=== PATIENT | male | born 1980 | race Caucasian/White ===

== ENCOUNTER 2021-11-09 11:26 | Outpatient (CLI) | payer OTHER, SELFPAY ==
[2021-11-09 17:29] LABS: Cholesterol* 212 mg/dL (90-199); HDL Cholesterol* 43 mg/dL (>=40); LDL Cholesterol Calculated 136 mg/dL (<100); Triglycerides* 166 mg/dL (40-149)
[2021-11-09 17:47] LABS: Vitamin D 25 Hydroxy* 37 ng/mL (30-80)
[2021-11-09 18:05] LABS: Ferritin* 54.7 ng/mL (17.9-464.0)
== END 2021-11-09 11:27 | disposition home or self-care (01) ==
PROVIDERS: PCP Family Medicine; Visit Provider Family Medicine
DX: E55.9 Vitamin D deficiency, unspecified (principal); F32.9 Major depressive disorder, single episode, unspecified; N52.9 Male erectile dysfunction, unspecified; Z13.0 Encounter for screening for diseases of the blood and blood-forming organs and certain disorders involving the immune mechanism; Z13.6 Encounter for screening for cardiovascular disorders
CPT/HCPCS: 80061; 82306; 82728

== ENCOUNTER 2023-05-24 20:21 | Emergency (ER) | payer BC, SELFPAY ==
[2023-05-24 20:44] VITALS: BP 119/83; PULSE 113; RESP 18; TEMP 37; O2SAT 98; BMI 22.8
--- NOTE | 2023-05-24 21:11 | ED.GENADULT ---
HPI - General Adult General Chief complaint: Cough Stated complaint: Flu like symptoms; tingly lungs Time Seen by Provider: 05/24/23 20:35 History of Present Illness HPI narrative: cough congestion nasal drainage since 0, states gets pnx easily and wants to get ahead of it. pt states it starting to feel like its getting down into his lungs - tingle feeling. hx panic attacks so pt took ativan at 1930 with tylenol and ibuprofen because his temporal temp was 105 at home . 42-year-old man presenting to the emergency department with concern of potential pneumonia. About 16 hours ago developed relatively rapid onset of cough congestion runny nose and body aches and shakes and fever. Measured temperature up to 105 at home apparently. He is worried it might be getting into his lungs noting a history of pneumonia gesturing across the upper chest. I understand him to say that his doctor has told him that he has upper lung disease. Underlying history of anxiety and has taken an Ativan. Also took ibuprofen and acetaminophen prior to arrival. I note he arrives afebrile now. No vomiting. No diarrhea. No particular exposures. Related Data Home Medications Medication Instructions Recorded Confirmed amitriptyline 100 mg tablet 100 mg PO QDAY 11/09/21 05/24/23 fluticasone propionate 110 1 inhalation PRN 11/09/21 11/09/21 mcg/actuation HFA aerosol inhaler lorazepam 1 mg tablet 1 mg PO QDAY PRN 11/09/21 05/24/23 pregabalin 25 mg capsule (Lyrica) 25 mg PO BID 11/09/21 05/24/23 propranolol 60 mg capsule,24 60 mg PO QDAY 11/09/21 11/09/21 hr,extended release quetiapine 25 mg tablet (Seroquel) 12.5 mg PO QDAY 11/09/21 11/09/21 sumatriptan succinate 100 mg 100 mg PO ONCE PRN 11/09/21 11/09/21 tablet (Imitrex) Previous Rx's Medication Instructions Recorded sildenafil 100 mg tablet 100 mg PO QDAY PRN sexual activity 05/14/22 #7 tabs montelukast 10 mg tablet 10 mg PO QPM #90 tabs 08/13/22 Allergies Allergy/AdvReac Type Severity Reaction Status Date / Time No Known Allergies Allergy Unverified 11/08/21 15:20 Review of Systems Status of ROS: Reports: 6 or more systems reviewed and unremarkable except as noted in History and below [facility] Surgical History Status post tonsillectomy and adenoidectomy ?Z90.89 - Acquired absence of other organs (ICD-10) Family History Other Diabetes Social History Smoking Status: Never smoker Exam Narrative: Exam Narrative: Pleasant. Seems generally little uncomfortable. Breathing easily. Sounds a little congested in the nasopharynx. Oropharynx is moist. Neck is supple without lymphadenopathy. Lungs actually sound clear. No wheeze. Heart is in an elevated rate and regular rhythm. No murmur rub or gallop noted. Abdomen is soft and while he resists a little bit on the exam, abdomen is nontender. Lower extremities without edema. He is well-perfused. Const: Vital Signs, click to edit/add: Vital Signs - 24 hr 05/24/23 20:44 Temperature 98.6 F Pulse Rate [Pulse Oximeter] 113 H Respiratory Rate 18 Blood Pressure [Le ft Upper Arm] 119/83 Pulse Oximetry 98 Oxygen Delivery Me thod Room Air Documenting provider has reviewed patient's vital signs: yes Course Vital Signs Vital signs: Initial Vital Signs Temperature 98.6 F 05/24/23 20:44 Temperature Source Temporal Artery Scan 05/24/23 20:44 Pulse Rate 113 H 05/24/23 20:44 Respiratory Rate 18 05/24/23 20:44 Blood Pressure 119/83 05/24/23 20:44 Blood Pressure Mean 95 05/24/23 20:44 Blood Pressure Position Sitting 05/24/23 20:44 Pulse Oximetry 98 05/24/23 20:44 Oxygen Delivery Method Room Air 05/24/23 20:44 Vital Signs Temperature 98.6 F 05/24/23 20:44 Pulse Rate 113 H 05/24/23 20:44 Respiratory Rate 18 05/24/23 20:44 Blood Pressure 119/83 05/24/23 20:44 Pulse Oximetry 98 05/24/23 20:44 Oxygen Delivery Method Room Air 05/24/23 20:44 Temperature 98.6 F 05/24/23 20:44 Pulse Rate 113 H 05/24/23 20:44 Respiratory Rate 18 05/24/23 20:44 Blood Pressure 119/83 05/24/23 20:44 Pulse Oximetry 98 05/24/23 20:44 Oxygen Delivery Method Room Air 05/24/23 20:44 Medical Decision Making MDM Narrative Medical decision making narrative: With abruptness of onset I doubt pneumonia. Considering community prevalence suspect influenza. Would also screen for COVID and RSV. Reported history of pneumonia will proceed with chest x-ray though somewhat therapeutic I think. Other than mild tachycardia vitals looked good on arrival. Reviewing records notes a history of asthma last care provider's notes. Mr. Higginbotham does have albuterol available. Does not feel he needs anything else for treatment here today at this time. Chest x-ray reviewed by me does not appear to show any acute airspace abnormality/infiltrate. No pneumothorax. I did review old x-rays as well. Looks like in 2020 or 2021, 2 imagings ago there was what appears to be a left upper lung infiltrate. It is not present here today. Triple swab indeed reveals influenza a. Discussed potential treatment options. Still vitally well. With underlying comorbidity of asthma in record, furthermore very early in illness, would offer Tamiflu. See patient discharge plan Medical Records Medical records reviewed: Yes I reviewed the patient's medical records Lab Data Lab results reviewed: Yes I reviewed the patient's lab results Labs: Lab Results 05/24/23 Range/Units 20:45 SARS-CoV-2 (PCR) Negative SARS-CoV-2 (Negative) Influenza Type A (PCR) POSITIVE PCR FLU A A (Negative) Influenza Type B (PCR) Negative PCR FLU B (Negative) RSV (PCR) Negative PCR RSV (Negative) Discharge Plan Discharge Clinical Impression: Influenza A Patient Disposition: Home w/ Parent or Adult Condition: Improved Additional Instructions: Focus on hydration. Consider reconstituting powdered electrolyte drinks. Can take up to 800 mg of ibuprofen or up to 1000 mg of acetaminophen per dose. Tamiflu from [facility]. I will call you if Radiology has anything more to say about your chest x-ray. Prescriptions: No Action fluticasone propionate 110 mcg/actuation HFA aerosol inhaler 1 inhalation PRN propranolol 60 mg capsule,extended release 24 hr 60 mg PO QDAY quetiapine [Seroquel] 25 mg tablet 12.5 mg PO QDAY pregabalin [Lyrica] 25 mg capsule 25 mg PO BID amitriptyline 100 mg tablet 100 mg PO QDAY lorazepam 1 mg tablet 1 mg PO QDAY PRN sumatriptan succinate [Imitrex] 100 mg tablet 100 mg PO ONCE PRN sildenafil 100 mg tablet 100 mg PO QDAY PRN (Reason: sexual activity) Qty: 7 4RF Rx Instructions: administer 30 minutes to 4 hours before activity montelukast 10 mg tablet 10 mg PO QPM Qty: 90 3RF Follow Up/Referrals: Bruce Sanchez MD [Primary Care Provider] - Stand Alone [facility]: [facility] Info Inst[facility]
--- NOTE | 2023-05-24 21:12 | CRLHL7_ITS ---
For Patients: As a result of the Cures Act, medical imaging exams and procedure reports are released immediately into your electronic medical record. You may view this report before your referring provider. If you have questions, please contact your health care provider. INDICATION: Cough and fever. TECHNIQUE: Chest 1 views. COMPARISON: 07/06/2020. FINDINGS: Cardiovasculature and mediastinum: Heart size and vasculature are normal in caliber and appearance. Lungs and pleural spaces: Lungs are clear. No sign of infiltrate or mass. No sign of pleural effusion. No pneumothorax. Bones and soft tissues: No significant findings. IMPRESSION: No acute findings and no significant changes from the prior exam. Dictated by Fercho Keating MD @ 05/24/2023 10:58:35 PM (Electronically Signed)
[2023-05-24 21:32] LABS: PCR FLU A POSITIVE PCR FLU A (Negative); PCR FLU B Negative PCR FLU B (Negative); PCR RSV Negative PCR RSV (Negative); SARS PCR* Negative SARS-CoV-2 (Negative)
== END 2023-05-24 22:52 | disposition home or self-care (01) ==
PROVIDERS: Emergency Provider Family Medicine; PCP Family Medicine
DX: J09.X2 Influenza due to identified novel influenza A virus with other respiratory manifestations (principal)
CPT/HCPCS: 71045; 87631; 99283; 99284

== ENCOUNTER 2023-09-30 10:01 | Outpatient (CLI) | payer BC, SELFPAY | END 2023-09-30 10:02 | disposition home or self-care (01) | PROVIDERS: PCP Family Medicine; Visit Provider Family Medicine | DX: Z00.00 Encounter for general adult medical examination without abnormal findings (principal); E78.5 Hyperlipidemia, unspecified; E55.9 Vitamin D deficiency, unspecified; Z13.29 Encounter for screening for other suspected endocrine disorder | CPT/HCPCS: 80061; 84443 ==

== ENCOUNTER 2024-10-22 21:13 | Emergency (ER) | payer BC, SELFPAY ==
--- OUTSIDE RECORDS SUMMARY | 2020-06-26 10:37 | XMS_ITS | Continuity of Care Document ---
Author Organization LEENA Spence Address [address] [place] [address] Phone Care Team Providers Care Deputy K 9 Name Role Phone Bowen Kilpatrick MD Unavailable Unavailable Allergies, Adverse Reactions, Alerts Substance Reaction Status Criticality No Known Allergies Active No Inform ation Medications Medication Instructions Dosage Effective Dates (start - stop) Status Comments desvenlafaxine succinate ER 100 mg tablet,extended release 24 hr take 1 tablet by oral route every day 100 MG - Active Zofran 4 mg tablet take 1 tablet by ora l route 3 times every day 4 MG - Active metoprolol tartrate 25 mg tablet take 1 tablet by oral route every day 25 MG - Active gabapentin 600 mg tablet take 1 tablet by oral route 3 times every day 600 MG - Active Procedures Procedure Date Inject, Spine, Cerv/Thor, Epi/subarc w/i mg Guid Methylprednisolone Acetate-40 Change Control for Diagnosis(s) 021 Change Control for Pharmaceuticals CC Control For Rem/Void Of Mutually Excl usive Proc Inject, Spine, Cerv/Thor, Epi/subarc w/i mg Guid Moderate Sedation (older Than 5 Years) F Change Control for Procedure(s): 2020 New Pt Eval 45 Min Advance Directives Directive Yes / No Effective Date File Name No Information Encounters Encounter Description Practice Location Reason(s) For Visit Diagnoses Date Provider Providers Copied on Encounter LEENA Spence, [address], [place], [place], [id number], [place] tel:[phone] [facility] No Information 1 Finesse Wiseman. [address], [facility] [place], [id number], [place]. tel:[phone] Referring Provider: Issac Jalloh, [address], [place], [address]. tel:[phone] [facility], [address], [place], [address], [place] tel:[phone] [facility] bilateral neck pain (chief complaint) Other cerv disc degeneration, mid-cervical rgn, unsp levelOther cerv disc degeneration, mid-cervical rgn, unsp levelRadiculopathy, cervical regionOther cerv disc degeneration, mid-cervical rgn, unsp level [facility]. [address], [place], [place], [id number], [place]. tel:[phone] Referring Provider: Stacy Delgado MD, [address] [place] [address], [address]. tel:[phone] [facility], [address], [place], [place], [id number], [place] tel:[phone] [facility] No Information 1 Rosio Davenport. [address], [place], [address], [place]. tel:[phone] Referring Provider: Stacy Delgado MD, [address] [place] [address], [address]. tel:[phone] New Pt Eval 45 Min [facility], [address], [place], [place], [id number], [place] tel:[phone] [facility] Neck Pain (chief complaint) Pain in shoulderCervicalgia MigrainePain in thoracic spineOther spondylosis, cervical region 0 Kilpatrick Bowen. [address], [place], [place], [id number], [place]. tel:[phone] Referring Provider: Stacy Delgado MD, [address], [place], [address]. tel:[phone] Family History Family Member Type Diagnosis Age At Onset Mother Problem (finding) Neurologiv Condition Mother Problem (finding) Sleep apnea Mother Problem (finding) Depression Payers Payer name Insurance type Covered green party ID Authortab gaviria(s) [employer] [id number] Social History Type Description Quantity Date Captured Comments Sex Male Smoking Status No Information Chief Complaint And Reason For Visit No Information Reason For Referral Reason For Referral No Information History Of Present Illness Encounter Date Complaint History Of Prese nt Illness bilateral neck pain Neck Pain Location of pain is bilateral head, bilateral scalp, bilateral posterior neck, bilateral shoulder, bilateral arm, bilateral upper back, bilateral scapula, bilateral interscapular, bilateral mid back and bilateral chest. The patient describes the pain as Burning, Discomforting, Piercing and Sharp. Aggravating factors include bending, defecation, kneeling, prolonged sitting and rotation. Relieving factors include heating pad, ice, injection, narcotic analgesics and OTC medications. Pertinent negatives include bladder incontinence, bowel incontinence, dysphagia, joint pain, rash and sexual dysfunction. Functional Status Date Functional Assessmen t No Information Instructions Date Instruction Additional Elviar yuli - Follow up in the [facility]- Follow up with repeat VERNA in 3-4 weeks- Patient reports having previous Cervical RFA on the left side in the past. FLAKO procedure report of previous cervical RFA. Once we obtain these records, we can consider scheduling a repeat cervical RFA on the left side. Related to Other cerv disc degeneration, mid-cervical rgn, unsp level Assessments Type Assessment Date No Information Patient Care Teams Name Effective Dates (start - stop) Status Members No Information
--- OUTSIDE RECORDS SUMMARY | 2020-06-26 10:37 | XMS_ITS | Continuity of Care Document ---
Author Organization LEENA Spence Address [address] [place] [address] Phone Care Team Providers Care Wildlife Technician Name Role Phone Bowen Kilpatrick MD Unavailable Unavailable Allergies, Adverse Reactions, Alerts Substance Reaction Status Criticality No Known Allergies Active No Inform ation Medications Medication Instructions Dosage Effective Dates (start - stop) Status Comments gabapentin 600 mg tablet take 1 tablet by oral route 3 times every day 600 MG - Active metoprolol tartrate 25 mg tablet take 1 tablet by oral route every day 25 MG - Active Zofran 4 mg tablet take 1 tablet by ora l route 3 times every day 4 MG - Active desvenlafaxine succinate ER 100 mg tablet,extended release 24 hr take 1 tablet by oral route every day 100 MG - Active Procedures Procedure Date Inject, [...] Providers Copied on Encounter LEENA Spence, [address], [place], [place], [id number], [place] tel:[phone] [facility] No Information 1 Finesse Wiseman. [address], [facility] [place], [id number], [place]. tel:[phone] Referring Provider: Issac Jalloh, [address], [place], [address]. tel:[phone] [facility], [address], [place], [address], [place] tel:[phone] [facility] bilateral neck pain (chief complaint) Other cerv disc degeneration, mid-cervical rgn, unsp levelOther cerv disc degeneration, mid-cervical rgn, unsp levelRadiculopathy, cervical regionOther cerv disc degeneration, mid-cervical rgn, unsp level 1 [facility]. [address], [place], [place], [id number], [place]. tel:[phone] Referring Provider: Stacy Delgado MD, [address] [place] [address], [address]. tel:[phone] [facility], [address], [place], [place], [id number], [place] tel:[phone] [facility] No Information 1 Rosio Davenport. [address], [place], [address], [place]. tel:[phone] Referring Provider: Stacy Delgado MD, [address] [place] [address], [address]. tel:[phone] New Pt Eval [address] [facility], [address], [place], [place], [id number], [place] tel:[phone] [facility] Neck Pain (chief complaint) Pain in shoulderCervicalgia MigrainePain in thoracic spineOther spondylosis, cervical region 0 Kilpatrick Bowen. [address], [place], [place], [id number], [place]. tel:[phone] Referring Provider: tSacy Delgado MD, [address], [place], [address]. tel:[phone] Family History Family Member Type Diagnosis Age At Onset Mother Problem (finding) Neurologiv Condition Mother Problem (finding) Sleep apnea Mother Problem (finding) Depression Payers Payer name Insurance type Covered libertarian ID Authortab gaviria(s) [facility] [id number] Social History Type Description Quantity Date Captured [...] Elviar yuli - Follow up in the [facility]- Follow up with repeat VERNA in 3-4 [...]
--- OUTSIDE RECORDS SUMMARY | 2024-10-22 21:15 | XMS_ITS | Clinical Summary ---
Author Organization [facility] Address [address] [place] [address] Care Team Providers Care Brain Surgeon Name Role Phone Bruce Sanchez MD Primary Care Provider [phone] Allergies No known active allergies Medications montelukast (SINGULAIR) 10 mg tablet 06/16/2020 Active propranoloL (INDERAL) 10 mg tablet TAKE 1 TO 2 TABLETS BY MOUTH EVERY DAY NEEDED FOR ANXIETY 09/14/2020 Active ondansetron (ZOFRAN) 4 mg tablet Take 4 mg by mouth 3 times daily if needed. FOR NAUSEA 06/25/2020 Active SUMAtriptan (IMITREX) 100 mg tablet 06/23/2020 Active ARIPiprazole (ABILIFY) 5 mg tablet Take 2 Tablets (10 mg) by mouth once daily. 0 09/20/2020 Active QUEtiapine (SEROQUEL) 25 mg tablet Take 1 Tablet (25 mg) by mouth 2 times daily. 0 12/27/2020 Active oxybutynin XL (DITROPAN XL) 10 mg CR tabletIndicatio ns:Nocturia Take 1 Tablet (10 mg) by mouth once daily. 30 Tablet 11 12/27/2020 Active amitriptyline (ELAVIL) 100 mg tablet Take 100 mg by mouth at bedtime. 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 Height - - Body Mass Index - - Plan of Treatment Health Maintenance Due Date Last Done Comments Tetanus booster 1990 Depression screening for age 12+ 1991 HIV for age 15-65 1994 BMI (ht and wt on same day) for age 18+ 1997 Hepatitis C screening for ag e 18-79 1997 Hepatitis B series for 19+ ( 1 of 3 - 19+ 3-dose series) 1998 COVID-19 vaccine series (2 2023- season) 2023 12/04/2020 Colonoscopy through age 75 2024 Lipids for age 45-75 2024 Influenza Vaccine (#1) 2024 Pneumococcal series for age 6-49 Aged Out No longer eligible based on patient's age to complete this topic Insurance BLUE CROSS OF NON-PA-ITS Care Teams Brain Surgeon Relationship Specialty Start Date End Date Bruce Sanchez MD PCP - General Family Practice 05/29/20
--- OUTSIDE RECORDS SUMMARY | 2024-10-22 21:15 | XMS_ITS | Clinical Summary ---
Author Organization [facility] Address [address] [place] [address] Care Team Providers Care Pot Room Tapper Name Role Phone Unavailable Primary Care Provider Unavailabl e Source Comments You are receiving this document as you are listed as the primary care provider,follow-up provider, or the patient has been referred to you for consultation.This is in compliance with the Medicare and[facility] EHR Incentive Program,which states Providers who transition their patient to another setting of careor provider of care or refers their patient to another provider of care shouldprovide summary care record for each transition of care or referral. [facility] Allergies No known active allergies Medications No known medications Social History Tobacco Use Types Packs/Day Years Used Date Smoking Tobacco: Passive Smo ke Exposure - Never Smoker Smokeless Tobacco: Never Sex and Gender Information Value Date Recorded Sex Assigned at Not on file Legal Sex Male 5:54 AM CDT Gender Identity Not on file Sexual Orientation Not on file Last Filed Vital Signs Vital Sign Reading Time Taken Comments Blood Pressure 120/77 11/03/2019 9:49 AM CDT Pulse 75 11/03/2019 9:49 AM CDT Temperature - - Respiratory Rate - - Oxygen Saturation 100% 11/03/2019 9:49 AM CDT Inhaled Oxygen Concentration - - Weight - - Height - - Body Mass Index - - Plan of Treatment Health Maintenance Due Date Last Done Comments Colon Cancer Screening Plan Due 1979 Hep C Screening (Preventive Services) 1979 HIV Screening (Preventive Services) 1995 Adult Preventive Visit 1997 HepB Vaccine (1) 1998 Cholesterol 2014 COVID-19 Vaccine (2023-2 5 season) 2023 Influenza Vaccine (#1) 2024 03/05/2010 DTaP/Tdap/Td Vaccine (2 - Tdap) 08/30/2027 8 Zoster/Shingles Vaccine (1 of 2) 2029 Pneumococcal Vaccine Aged Out 08/29/2017 No long er eligible based on patient's age to complete this topic HPV Vaccine Aged Out No longer eligi ble based on patient's age to complete this topic HepA Vaccine Aged Out No longer eligi ble based on patient's age to complete this topic Hib Vaccine Aged Out No longer eligi ble based on patient's age to complete this topic IPV (Polio) Vaccine Aged Out No longe r eligible based on patient's age to complete this topic MCV4 Vaccine Aged Out No longer eligi ble based on patient's age to complete this topic Meningococcal B Vaccine Aged Out No l onger eligible based on patient's age to complete this topic Insurance [employer] [id number]
[2024-10-22 21:38] VITALS: BP 124/86; PULSE 81; RESP 16; TEMP 36.7; O2SAT 98; BMI 23.6
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
== END 2024-10-22 23:40 | disposition home or self-care (01) ==
LOC: ED 23:38
PROVIDERS: Emergency Provider Emergency Medicine; PCP Family Medicine
DX: H72.92 Unspecified perforation of tympanic membrane, left ear (principal)
CPT/HCPCS: 99282; 99283

== ENCOUNTER 2024-11-24 10:39 | Outpatient (CLI) | payer BC, SELFPAY ==
--- NOTE | 2024-11-24 11:00 | CRLHL7_ITS ---
For Patients: As a result of the Century Cures Act, medical imaging exams and procedure reports are released immediately into your electronic medical record. You may view this report before your referring provider. If you have questions, please contact your health care provider. INDICATION: Chronic sinusitis. TECHNIQUE: High-resolution CT images of the paranasal sinuses without contrast. Multiplanar reconstructions. FINDINGS: Frontal: The hypoplastic frontal air cells are clear. Ethmoid: There is minimal mucosal thickening in a few bilateral anterior ethmoid air cells without air-fluid levels. Sphenoid: There is focal mucosal thickening in the dominant left sphenoid air cell and mild mucosal narrowing of the right sphenoethmoidal recess. Maxillary: 13 mm plantar retention cyst at the base the left maxillary antrum. 2-3 mm mucosal thickening in the inferior right maxillary antrum. The ostiomeatal units are patent bilaterally. Nasal fossa: Subtle S shaped curvature of the bony nasal septum with a small leftward directed inferior nasal septal spur. The posterior nasal fossa and nasopharynx are unremarkable. Mastoid air cells grossly clear. IMPRESSION: 1. Mild inflammatory mucosal thickening in the maxillary ethmoid and sphenoid sinuses without air-fluid levels. 2. Patent bilateral ostiomeatal units. 3. Mild nasal septal curvature. Please note that all CT scans at this facility use dose modulation, iterative reconstruction, and/or weight-based dosing when appropriate to reduce radiation dose to as low as reasonably achievable. Dictated by Sim Bishop MD @ 11/25/2024 7:56:21 AM (Electronically Signed)
== END 2024-11-24 10:40 | disposition home or self-care (01) ==
LOC: CT 10:39
PROVIDERS: PCP Family Medicine; Visit Provider Physician Assistant
DX: J32.9 Chronic sinusitis, unspecified (principal); J32.0 Chronic maxillary sinusitis; J34.2 Deviated nasal septum
CPT/HCPCS: 70486

== ENCOUNTER 2025-01-12 11:01 | Outpatient (CLI) | payer BC, SELFPAY | END 2025-01-12 11:02 | disposition home or self-care (01) | PROVIDERS: PCP Family Medicine; Visit Provider Family Medicine | DX: Z01.818 Encounter for other preprocedural examination (principal); E78.00 Pure hypercholesterolemia, unspecified | CPT/HCPCS: 80048; 80061 ==

== ENCOUNTER 2025-01-28 10:23 | Day surgery (SDC) | payer BC, SELFPAY ==
[2025-01-28] VITALS (11 sets, daily range): BP systolic 86–125; BP diastolic 52–84; PULSE 73–97; RESP 12–16; TEMP 36.6–36.7; O2SAT 94–100; BMI 23.6
[2025-01-28] MEDS: LACTATED RINGERS 1000 ML 1,000 ML 100 ML IV (10:30)
[2025-01-28] MEDS: SODIUM CHLORIDE 0.9 % (FLUSH) 10 ML SYRINGE IVF (10:45)
[2025-01-28] MEDS: LACTATED RINGERS 1000 ML 1,000 ML 35 ML IV (10:55)
[2025-01-28] MEDS: MUPIROCIN 1 GM PACKET 1 APPLIC TOPICAL (12:32)
[2025-01-28] MEDS: AYR SALINE NASAL GEL 1 APPLIC NOSTRIL-B (12:33)
[2025-01-28] MEDS: BUPIVACAINE 0.5%/EPINEPHRINE 0.9 MG (30.9 ML) INJECTION (12:42)
--- NOTE | 2025-01-28 13:10 | P.ANES_ITS ---
Anesthesia Charges Start Date/Time Anesthesia Start Date: 01/28/25 Anesthesia Start Time: 12:12 Stop Date/Time Anesthesia Stop Date: 01/28/25 Anesthesia Stop Time: 13:09 Coding CPT Codes CPT Codes: ANESTH PROCEDURE ON MOUTH - 73640 ([id number]) P2 - PATIENT W/MILD SYST DISEASE, QK - NEEDLE LOOM OPERATOR 2-4 CNCRNT ANES PROC, QX - BATTERY REPAIRER SVC W/ MD MED DIRECTION
--- NOTE | 2025-01-28 13:10 | W.ANESCHARGE ---
Anesthesia Charges Start Date/Time Anesthesia Start Date: 01/28/25 Anesthesia Start Time: 12:12 Stop Date/Time Anesthesia Stop Date: 01/28/25 Anesthesia Stop Time: 13:09 Coding CPT Codes CPT Codes: ANESTH PROCEDURE ON MOUTH - 86805 ([id number]) P2 - PATIENT W/MILD SYST DISEASE, QK - ACTIVE DIRECTORY SPECIALIST 2-4 CNCRNT ANES PROC, QX - APPLICATIONS DEVELOPER SVC W/ MD MED DIRECTION
--- NOTE | 2025-01-28 13:38 | W.PM.ENTPROC ---
Procedure Note Date of procedure: 01/28/25 Procedure: Preop diagnosis nasal obstruction, deviated septum, bilateral inferior and left middle turbinate hypertrophy Postoperative diagnosis same Procedure septoplasty, submucous partial resection inferior turbinates bilateral Under general trach anesthesia patient was prepped and draped usual fashion. The nose was decongested and injected. A right hemitransfixion incision was made. Left anterior and posterior tunnels were created and a vertical incision made through the cartilage and a right posterior tunnel created. The posterior deflected portions of septal bone and cartilage were resected and a large piece trimmed returned to intraseptal space. Anteriorly a right anterior tunnel was created from an inferior approach and the septum was allowed to return to midline. The hemitransfixion was closed with 2 4-0 chromic sutures. A stab incision was made in the anterior of the right inferior turbinate a tunnel created with a Davian dissector. The eugenia bone was outfractured and a conservative anterior submucous resection performed. The Coblation was used for hemostasis and to cauterize intramurally along the inferior 10%. This was repeated on the left side in identical fashion. The left middle turbinate was simply crushed with the Jose Ramon forceps. Silastic stents were secured with 3-0 nylon and Merocel packing placed in each side of the nose. The patient procedure well was taken recovery in satisfactory condition blood loss was 20 mL. Surgeon: Tl Calderon MD
--- NOTE | 2025-01-28 13:49 | P.ANES_ITS ---
Anesthesia Charges Start Date/Time Anesthesia Start Date: 01/28/25 Anesthesia Start Time: 12:12 Stop Date/Time Anesthesia Stop Date: 01/28/25 Anesthesia Stop Time: 13:09 Coding CPT Codes CPT Codes: ANESTH NOSE/SINUS SURGERY - 02734 ([id number]) P2 - PATIENT W/MILD SYST DISEASE, QX - KERFER MACHINE OPERATOR SVC W/ MD MED DIRECTION, QK - SUB PLANT MANAGER 2-4 CNCRNT ANES PROC
--- NOTE | 2025-01-28 13:49 | W.ANESCHARGE ---
Anesthesia Charges Start Date/Time Anesthesia Start Date: 01/28/25 Anesthesia Start Time: 12:12 Stop Date/Time Anesthesia Stop Date: 01/28/25 Anesthesia Stop Time: 13:09 Coding CPT Codes CPT Codes: ANESTH NOSE/SINUS SURGERY - 77267 ([id number]) P2 - PATIENT W/MILD SYST DISEASE, QX - CARBON CLEANER SVC W/ MD MED DIRECTION, QK - ALUMNI RELATIONS OFFICER 2-4 CNCRNT ANES PROC
== END 2025-01-28 14:11 | disposition home or self-care (01) ==
LOC: OR 10:25
PROVIDERS: PCP Family Medicine; Visit Provider Otolaryngology
PROC: (CPT 30520; principal; 2025-01-28 11:45)
DX: J34.2 Deviated nasal septum (principal); J34.3 Hypertrophy of nasal turbinates; J34.89 Other specified disorders of nose and nasal sinuses
CPT/HCPCS: 30520; 30140; 00160; 00170; A9270; J0330; J1100; J2250; J2405; J2704; J3010; J7120